=== PATIENT | male | born 1945 | race Caucasian/White ===

== ENCOUNTER 2024-04-02 09:31 | Outpatient (CLI) | payer MEDICARE, MEDICAID, SELFPAY ==
--- NOTE | 2024-04-02 09:36 | CT_ITS ---
WS: [id number] LDCT LUNG CANCER SCREENING HISTORY: NICOTINE DEPENDENCE,CIGARETTES TECHNIQUE: Axial imaging performed from the apices to 1 cm below the costophrenic angles. Coronal and sagittal reformats are submitted with axial MIP series. All CT scans at [facility] use at least one of these dose optimization techniques: automated exposure control; mA and/or kV adjustment per patient size (includes targeted exams where dose is matched to clinical indication); or iterativ e reconstruction. DLP: 70.00 mGy.cm DIvol: Mean CTDIvol: 1.60 (mGy) COMPARISON: None available. Diagnostic quality: Satisfactory Lungs: Mild hyperexpansion. Mild haziness throughout both lungs. Benign granuloma RIGHT lower lobe. N o suspicious masses or nodules are identified. Heart: Normal size. Mild coronary artery calcifications.. Mild atherosclerosis aorta. Normal pulmonar y artery. Small hiatal hernia. No adrenal mass. Other findings: None. CT/CT lung screening [id number] IMPRESSION: LUNG-RADS: 1-Negative FOLLOW UP: 12 Month: Continue annual screening with LDCT OTHER FINDINGS (S MODIFIER): None.
== END 2024-04-02 09:32 | disposition home or self-care (01) ==
PROVIDERS: Family Provider Nurse Practitioner Family; PCP Nurse Practitioner Family; Visit Provider Nurse Practitioner Family
DX: F17.210 Nicotine dependence, cigarettes, uncomplicated (principal); J84.10 Pulmonary fibrosis, unspecified; K44.9 Diaphragmatic hernia without obstruction or gangrene
CPT/HCPCS: 71271

== ENCOUNTER 2025-10-12 09:56 | Outpatient (CLI) | payer MEDICARE, MEDICAID, SELFPAY ==
--- NOTE | 2025-10-12 10:01 | CT_ITS ---
WS: [id number] CT chest wo con 19692 HISTORY: LUNG NODULES TECHNIQUE: Axial imaging performed through the thorax. Coronal and sagittal reformats are submitted. All CT scans at [facility] use at least one of these dose optimization techniques: automated exposure control; mA and/or kV adjustment per patient size (includes targeted exams where dose is matched to clinical indication); or iterative reconstruction. CONTRAST: None DLP: 387.17 mGy.cm COMPARISON: 04/02/2024 Lungs and central airway: Poor inspiratory effort resulting in low lung volumes. Mild hazy attenuation along the fissures is due to poor inspiratory effort. Benign granuloma RIGHT lower lobe. No additional suspicious mass or nodule. Pleura: Normal. No pleural effusion. Heart and pericardium: Mild cardiomegaly. Mediastinum and peter: No mediastinum or hilar adenopathy. Vessels: Mild ectasia and atherosclerosis aorta. Normal size pulmonary artery. Chest wall and lower neck: No soft tissue masses. Upper abdomen: Cholelithiasis without acute cholecystitis. Normal adrenal glands as visualized. Mild atrophy of the visualized pancreas. Splenic and hepatic granulomata. Osseous structures: No destructive process. CT/CT chest wo con [id number] IMPRESSION: 1. No pulmonary mass or pneumonia. 2. Benign granuloma RIGHT lower lobe. 3. Mild cardiomegaly. 4. Mild atherosclerosis aorta. 5. Cholelithiasis without acute cholecystitis.
== END 2025-10-12 09:57 | disposition home or self-care (01) ==
PROVIDERS: PCP Nurse Practitioner Family; Visit Provider Nurse Practitioner Family
DX: R91.8 Other nonspecific abnormal finding of lung field (principal); J84.10 Pulmonary fibrosis, unspecified; I70.0 Atherosclerosis of aorta; K80.40 Calculus of bile duct with cholecystitis, unspecified, without obstruction; K86.89 Other specified diseases of pancreas; D73.9 Disease of spleen, unspecified
CPT/HCPCS: 71250